=== PATIENT | male | born 2000 | race Hispanic/Latino ===

== ENCOUNTER 2022-04-21 01:19 | Observation (INO) | payer OTHER ==
[2022-04-21] MEDS ORDERED: Lidocaine 1% w/Epinephrine 1:100K 20 ML VIAL ONE ×2 (01:23→02:35)
[2022-04-21] MEDS ORDERED: Boostrix 0.5 ML (Tdap) VIAL (>/=7 yrs of age) ONE (01:33)
[2022-04-21] MEDS ORDERED: CEFAZOLIN 2 GM VIAL ONE (01:38)
[2022-04-21 01:54] LABS: #Basophils 0.1 thou/uL (0.0-0.2); #Eosinphils 0.4 thou/uL (0.0-0.7); #Lymphocytes 3.2 thou/uL (1.20-3.40); #Monocytes 0.5 thou/uL (0.11-0.59); #Neutrophils 3.8 thou/uL (1.40-6.50); %Lymphocytes 40.4 % (21.0-51.0); %Monocytes 6.2 % (0.0-10.0); %Neutrophils 47.4 % (42.0-75.0); Hemoglobin 14.7 g/dL (14.0-18.0); Mean Corpuscular HGB CONC 32.5 g/dL (32.0-36.0); Mean Corpuscular Hemoglobin 31.1 pg (27.0-31.0); Mean Corpuscular Volume 95.7 fl (78.0-98.0); Mean Platelet Volume 7.3 fL (7.4-10.4); Platelet Count 284 10x3/uL (130-400); RBC Distribution Width 12.7 % (11.5-14.5); Red Blood Cell (RBC) Count 4.74 mill/uL (4.70-6.10); White Blood Cell (WBC) Count 7.9 10x3/uL (4.8-10.8)
[2022-04-21 02:02] LABS: PTT 27.7 sec (22.9-36.1); Prothrombin Time 13.1 sec (12.0-14.7)
[2022-04-21 02:06] LABS: ALT (SGPT) 134 U/L (8-55); AST (SGOT) 167 U/L (5-34); Albumin 4.2 g/dL (3.5-5.0); Alkaline Phosphatase 98 U/L (40-110); Anion Gap 16 mmol/L (10-20); BUN (Urea Nitrogen) 17 mg/dL (8.9-20.6); Bilirubin, Total 0.6 mg/dL (0.2-1.2); Calc. Creatinine Clearance 0 mL/min (70-130); Calcium 9.3 mg/dL (7.8-10.44); Carbon Dioxide 23 mmol/L (22-29); Chloride 108 mmol/L (98-107); Estimated GFR 89; Globulin 2.7 g/dL (2.4-3.5); Glucose 104 mg/dL (70-105); Potassium 3.6 mmol/L (3.5-5.1); Protein, Total 6.9 g/dL (6.0-8.3); Sodium 143 mmol/L (136-145)
[2022-04-21 02:12] LABS: CK (CPK) 3317 U/L (30-200); Lipase 40 U/L (8-78)
[2022-04-21 03:23] LABS: Acetaminophen Less than 10.0 mcg/mL (10.0-30.0); Alcohol Less than 10 mg/dL (Less than 10); Salicylate Less than 8.0 mg/dL (15.0-30.0)
[2022-04-21] MEDS ORDERED: traMADol HCl 50 MG TAB PO PRN ×2 (03:32)
[2022-04-21] MEDS ORDERED: Ondansetron ODT 4 MG TAB PO PRN (03:32)
[2022-04-21] MEDS ORDERED: Ondansetron PF 4 MG/2 ML Vial IVP PRN (03:32)
[2022-04-21] MEDS ORDERED: Dextrose 50% Abboject 50 ML SYRINGE SLOW IVP PRN (03:32)
[2022-04-21] MEDS ORDERED: Dextrose 5% in Water 1,000 ML IV PRN (03:32)
[2022-04-21] MEDS ORDERED: Ipratropium/Albuterol 3 ML NEB NEB PRN (03:32)
[2022-04-21] MEDS ORDERED: Cyclobenzaprine 10 MG TAB PO PRN (03:35)
[2022-04-21] MEDS ORDERED: Ondansetron PF 4 MG/2 ML Vial ONE ×2 (03:45→03:46)
[2022-04-21] MEDS ORDERED: FENTANYL 50 MCG/ML 1 ML VIAL ONE (03:45)
[2022-04-21] MEDS: Sodium Chloride 0.9% 1,000 ML IV SCH ×2 (06:00→12:06)
[2022-04-21 06:19] VITALS: BMI 25.9
[2022-04-21 07:51] VITALS: TEMP 98.1
[2022-04-21] MEDS ORDERED: Senokot S 8.6-50 MG TAB PO SCH (09:00)
[2022-04-21] MEDS ORDERED: Famotidine 20 MG TAB PO SCH (09:00)
[2022-04-21] MEDS ORDERED: Polyethylene Glycol 3350 17 GM Packet PO SCH (09:00)
[2022-04-21 10:33] LABS: Amphetamine Not Detected (NotDetected); Barbiturates Screen Not Detected (NotDetected); Benzodiazepine Screen Not Detected (NotDetected); Cocaine Metabolite Screen Not Detected (NotDetected); Methadone Not Detected (NotDetected); Methamphetamine Not Detected (NotDetected); Opiate Screen Not Detected (NotDetected); Oxycodone Screen Not Detected (NotDetected); Phencyclidine (PCP) Not Detected (NotDetected); THC/Cannabinoid Screen Not Detected (NotDetected); Tricyclic Screen Not Detected (NotDetected)
[2022-04-21] MEDS ORDERED: Iopamidol-370 76% 500 ML 1 ML ONE (11:26)
[2022-04-21 11:39] VITALS: BP 112/58
[2022-04-21] MEDS ORDERED: Acetaminophen 500 MG TAB PO SCH (12:00)
== END 2022-04-21 14:05 | disposition home or self-care (01) ==
LOC: ERS 01:19 → SURG B 03:36
PROVIDERS: ADMIT Surgery; ATTEND Surgery
DX: S06.0X0A Concussion without loss of consciousness, initial encounter (principal); S01.01XA Laceration without foreign body of scalp, initial encounter; S01.81XA Laceration without foreign body of other part of head, initial encounter; S27.0XXA Traumatic pneumothorax, initial encounter; S27.321A Contusion of lung, unilateral, initial encounter; T79.6XXA Traumatic ischemia of muscle, initial encounter; Z20.822 Contact with and (suspected) exposure to COVID-19; V89.2XXA Person injured in unspecified motor-vehicle accident, traffic, initial encounter
CPT/HCPCS: 36415; 70450; 71045; 71260; 72125; 74177; 80053; 80306; 80307; 82550; 83690; 85025; 85610; 85730; 86850; 86900; 86901; 90715; 96361; G0378; G0390; J2405; J3010; J7050; Q9967; U0003; U0005